=== PATIENT | female | born 1950 | race Caucasian/White ===

== ENCOUNTER → 2016-10-08 | Outpatient (CLI) | payer BC ==
[2016-10-08 11:48] LABS: Basophils % (A) 1 %; CH 28.2; CHCM 32.4; Eosinophils # (A) 0.1 k/uL (0-0.7); Eosinophils % (A) 2 %; HCT 42.1 % (34.0-46.0); HDW 2.83; HGB 13.4 gm/dL (11.4-16.0); Luc # (Auto) 0.13; Luc % (Auto) 2; Lymphocytes # (A) 1.5 k/uL (1.0-4.8); Lymphocytes % (A) 24 %; MCH 27.8 pg (25.0-35.0); MCHC 31.8 g/dL (31.0-37.0); MCV 87.5 fL (80.0-100.0); Monocytes # (A) 0.3 k/uL (0-1.0); Monocytes % (A) 4 %; Neutrophils # (A) 4.1 k/uL (1.3-7.7); Neutrophils % (A) 67 %; RBC 4.81 m/uL (3.80-5.40); RDW 13.3 % (11.5-15.5); WBC 6.1 k/uL (3.8-10.6)
[2016-10-08 12:05] LABS: ALT 33 U/L (9-52); AST 20 U/L (14-36); Alkaline Phosphatase 99 U/L (38-126); Anion Gap 13 mmol/L; Blood Urea Nitrogen 18 mg/dL (7-17); Calcium 9.3 mg/dL (8.4-10.2); Carbon Dioxide 27 mmol/L (22-30); Chloride 104 mmol/L (98-107); Cholesterol 175 mg/dL (<200); Glucose 106 mg/dL (74-99); HDL Cholesterol 58 mg/dL (40-60); Non-African American GFR(MDRD) >60 (>60 ml/min/1.73 sqM); Potassium 4.4 mmol/L (3.5-5.1); Sodium 144 mmol/L (137-145); Total Bilirubin 0.5 mg/dL (0.2-1.3); Triglycerides 80 mg/dL (<150)
== END | disposition home or self-care (01) ==
LOC: LABWHC1 11:20
PROVIDERS: ATTEND Internal Medicine
DX: Z00.00 Encounter for general adult medical examination without abnormal findings (principal); I10 Essential (primary) hypertension; E78.2 Mixed hyperlipidemia
CPT/HCPCS: 36415; 80053; 80061; 85025

== ENCOUNTER → 2017-02-25 | Outpatient (CLI) | payer BC ==
--- NOTE | 2017-03-02 08:26 | MM ---
Reason for exam: screening (asymptomatic). Last mammogram was performed 1 year ago. History: Patient is postmenopausal. Taking progesterone for 4 years 4 months. Physical Findings: A clinical breast exam by your physician is recommended on an annual basis and results should be correlated with mammographic findings. MG Screening Mammo w CAD Bilateral CC and MLO view(s) were taken. Prior study comparison: February 25, 2016, bilateral MG screening mammo w CAD. January 28, 2015, bilateral MG screening mammo w CAD. October 16, 2013, bilateral digital screening mammo w/CAD. There are scattered fibroglandular densities. No significant changes when compared with prior studies. ASSESSMENT: Negative, BI-RAD 1 RECOMMENDATION: Routine screening mammogram of both breasts in 1 year.
== END | disposition home or self-care (01) ==
LOC: RADMAMWWP 08:36
PROVIDERS: ATTEND Internal Medicine
DX: Z12.31 Encounter for screening mammogram for malignant neoplasm of breast (principal)

== ENCOUNTER → 2017-12-09 | Outpatient (CLI) | payer MEDICARE, BC ==
--- NOTE | 2017-12-09 17:04 | MR ---
EXAMINATION TYPE: MR brain wo/w con DATE OF EXAM: 12/09/2017 COMPARISON: NONE HISTORY: MS CONTRAST: Performed utilizing 10 mL intravenous Gadavist gadolinium contrast. TECHNIQUE: Multiplanar, multisequence imaging of the brain is performed on a 3.0 Katie magnet. Demye linating disease protocol with additional Sagittal Flair sequence is performed. Study is performed wi thin 24 hours of arrival to the hospital. FINDINGS: T2 White Matter Lesions Present : Yes Approximate Number of Lesions: Multiple scattered Locations Identified : Yes, numerous bilateral Size of Largest Lesion(s): 1. 0.7 x 1.1 x 1.2 cm. Location: Left frontal lobe perpendicular to the periventricular white matter Sequence 501 Image 20 (axial) and Sequence 601 Image 13 (sagittal). 2. 1.0 x 0.6 x 1.6 cm. Location: Perpendicular to the right lateral ventricles within the centrum s emiovale Sequence 501 Image 23 (axial) and Sequence 601 Image 21 (sagittal). Enhancing Lesion(s) Present: No Change from Prior: Not available Diffusion-weighted imaging is performed. No abnormal hyperintensity is present to suggest an acute i ntracranial infarct or acute ischemic change. Ventricles and sulci are appropriate for the patient age. There are no abnormal extra-axial fluid collections. The ventricular system and cisternal spaces are normal in size and appearance. The brain volume is age appropriate. The craniocervical junction dimitri ears within normal limits. The dural venous sinuses appear patent. No abnormal enhancement is present on post contrast images. . The visualized sinuses are clear. Visu alized orbits are unremarkable. IMPRESSION: 1. Multiple bilateral periventricular white matter changes, some of which are perpendicular to the v entricles. Findings can be suggestive for, although not diagnostic of, multiple sclerosis.
== END | disposition home or self-care (01) ==
LOC: RADMRIMAIN 12:51
PROVIDERS: ATTEND Psychiatry & Neurology Neurology
DX: R90.89 Other abnormal findings on diagnostic imaging of central nervous system (principal); G35 Multiple sclerosis
CPT/HCPCS: 82565; 70553; A9581

== ENCOUNTER → 2018-04-05 | Outpatient (CLI) | payer MEDICARE, BC ==
--- NOTE | 2018-04-07 08:03 | MM ---
Reason for exam: screening (asymptomatic). Last mammogram was performed 1 year and 1 month ago. History: Patient is postmenopausal. Taking progesterone for 4 years 4 months. Physical Findings: A clinical breast exam by your physician is recommended on an annual basis and results should be correlated with mammographic findings. MG Screening Mammo w CAD Bilateral CC and MLO view(s) were taken. Prior study comparison: February 25, 2017, bilateral MG screening mammo w CAD. February 25, 2016, bilateral MG screening mammo w CAD. There are scattered fibroglandular densities. Benign appearing bilateral calcifications. No suspicious abnormality. No significant changes when compared with prior studies. ASSESSMENT: Benign, BI-RAD 2 RECOMMENDATION: Routine screening mammogram of both breasts in 1 year.
== END | disposition home or self-care (01) ==
LOC: RADMAMWWP 07:36
PROVIDERS: ATTEND Internal Medicine
DX: Z12.31 Encounter for screening mammogram for malignant neoplasm of breast (principal)
CPT/HCPCS: 77067

== ENCOUNTER → 2018-05-03 | Outpatient (CLI) | payer MEDICARE, BC ==
--- NOTE | 2018-05-03 19:06 | CT ---
EXAMINATION TYPE: CT chest w con DATE OF EXAM: 05/03/2018 COMPARISON: None HISTORY: chest pain, hiatal hernia CT DLP: 469.7 mGycm, Automated exposure control for dose reduction was used. CONTRAST: Performed injected with 100 mL of Isovue 300. TECHNIQUE: Axial images were obtained at 5 mm thick sections. Reconstructed images are reviewed on [employer] computer in the coronal plane. FINDINGS: Portion of the thyroid visualized is normal. There is a 0.6 cm nodule within the right middle lobe. Series 4 image 27. A 0.3 cm nodules in the per iphery of the right midlung. Series 4 image 23. No enlarged mediastinal or hilar adenopathy is evident. The ascending aorta diameter at the level o f the main pulmonary artery is 3.3 cm. The main pulmonary artery diameter at the bifurcation is 2.[address] sections are obtained through the upper abdomen. There is a large hiatal hernia present. U pper portion of the abdomen within the [id number] is unremarkable. IMPRESSIONS: 1. Large hiatal hernia. 2. Couple of punctate densities within the right midlung. Follow-up chest CT is recommended in 6 [facility] hs.
== END | disposition home or self-care (01) ==
LOC: RADCTMAIN 07:29
PROVIDERS: ATTEND Surgery
DX: K44.9 Diaphragmatic hernia without obstruction or gangrene (principal); R94.2 Abnormal results of pulmonary function studies
CPT/HCPCS: 82565; 84520; 71260; 36415; Q9967

== ENCOUNTER → 2018-06-17 | Outpatient (CLI) | payer MEDICARE, BC ==
--- NOTE | 2018-06-17 10:10 | FL ---
EXAMINATION TYPE: FL barium swallow DATE OF EXAM: 06/17/2018 CLINICAL HISTORY: Paraesophageal hernia per order. TECHNIQUE: A double contrast esophagram is performed utilizing air and barium. A total of 17 second s of fluoroscopic time was utilized during procedure. 44 spot images are saved. COMPARISON: Chest CT May 03, 2018 FINDINGS: The esophagus shows satisfactory motility and emptying into the stomach. There is short seg ment of narrowing felt to be due to twisting of the distal esophagus right before large fixed hiatal hernia. Herniated stomach is abnormal twisting pattern similar to CT. Narrowing as would be expected at level of diaphragmatic hiatus is identified. There is felt just under 50% of stomach that remains below diaphragm. No significant gastroesophageal reflux was seen during real time performance of this study. IMPRESSION: Redemonstration of fairly large size fixed hiatal hernia that has abnormal twisting of th e herniated stomach. Some mild twisting of the distal esophagus is noted. No paraesophageal hernia i s identified.
--- NOTE | 2018-06-17 14:29 | NM ---
EXAMINATION TYPE: NM gastric emptying study DATE OF EXAM: 06/17/2018 COMPARISON: NONE HISTORY: Diaphragmatic hernia Following administration of 2.2 mCi Tc 99m Sulfur Colloid with 1 cup of oatmeal projection images of the abdomen were obtained 10 minutes post ingestion. When possible, both anterior and posterior proje ction images were obtained to allow the calculation of the geometric mean activity. Clearance: 100% % Half-life: 36 minutes Gastroesophagel reflux: None IMPRESSION: Gastric emptying: Complete emptying within 90 minutes Gastroesophageal reflux: Not observed Gastric emptying normal percentage values: 30 minutes: <70% of retention (> 30% emptying) suggests abnormally fast emptying. 60 minutes: <90% retention (>10% emptying) is normal; less than 30% retention (>70% emptying) suggest s abnormally rapid emptying. 90 minutes: <65% retention (> 35% emptying) is normal. 120 minutes: <60% retention (> 40% emptying) is normal. 180 minutes: <30% retention (> 70% emptying) is normal. Gastric emptying T-1/2: Solid: The normal range is 60-105 minutes Liquid only: Normal range is 10-45 minutes. Liquid only-children: At 60 minutes, normal range is 44-58 % . Liquid only-infants: At 60 minutes, normal range is 32-64 %. Additional references: Gastric Emptying Scintigraphy [email or web address]
== END | disposition home or self-care (01) ==
LOC: RADNMMAIN 06:54
PROVIDERS: ATTEND Thoracic Surgery (Cardiothoracic Vascular Surgery)
DX: K44.9 Diaphragmatic hernia without obstruction or gangrene (principal)
CPT/HCPCS: 74220; 78264; A9541

== ENCOUNTER → 2019-01-13 | Outpatient (CLI) | payer MEDICARE, BC ==
--- NOTE | 2019-01-13 10:14 | FL ---
EXAMINATION TYPE: FL UGI w esophagus w KUB DATE OF EXAM: 01/13/2019 COMPARISON: NONE HISTORY: Epigastric pain after eating TECHNIQUE: A single contrast UGI study is performed. FINDINGS: Registered Radiation Therapist image of the abdomen shows no gross abnormality. The stomach is primarily intrathoracic in location. Large fixed hiatal hernia and paraesophageal hiat al hernia noted. Moderate gastroesophageal reflux without esophagitis. Duodenal bulb and sweep have a normal appearance. IMPRESSION: Large fixed hiatal hernia with paraesophageal component.
== END | disposition home or self-care (01) ==
LOC: RADFLWHC 09:00
PROVIDERS: ATTEND Thoracic Surgery (Cardiothoracic Vascular Surgery)
DX: K44.9 Diaphragmatic hernia without obstruction or gangrene (principal)
CPT/HCPCS: 74241

== ENCOUNTER → 2019-04-12 | Outpatient (CLI) | payer MEDICARE, BC ==
--- NOTE | 2019-04-13 13:08 | MM ---
Reason for exam: screening (asymptomatic). Last mammogram was performed 1 year ago. History: Patient is postmenopausal. Taking progesterone for 4 years 4 months. Physical Findings: A clinical breast exam by your physician is recommended on an annual basis and results should be correlated with mammographic findings. MG 3D Screening Mammo W/Cad Bilateral CC and MLO view(s) were taken. Prior study comparison: April 05, 2018, bilateral MG screening mammo w CAD. February 25, 2017, bilateral MG screening mammo w CAD. There are scattered fibroglandular densities. There is a 1.2cm group of left upper outer quadrant middle depth calcifications for which additional views will be performed. Benign appearing right calcifications. ASSESSMENT: Incomplete: need additional imaging evaluation, BI-RAD 0 RECOMMENDATION: Special view mammogram of the left breast. [facility] will attempt to contact patient to return for supplemental views.
== END | disposition home or self-care (01) ==
LOC: RADMAMWWP 06:57
PROVIDERS: ATTEND Internal Medicine
DX: Z12.31 Encounter for screening mammogram for malignant neoplasm of breast (principal)
CPT/HCPCS: 77063; 77067

== ENCOUNTER → 2019-04-24 | Outpatient (CLI) | payer MEDICARE, BC | END | disposition home or self-care (01) | LOC: RADMAMWWP 08:52 | PROVIDERS: ATTEND Internal Medicine | DX: Z53.9 Procedure and treatment not carried out, unspecified reason (principal) ==

== ENCOUNTER → 2019-05-22 | Outpatient (CLI) | payer MEDICARE, BC ==
--- NOTE | 2019-05-22 11:02 | MM ---
Reason for exam: additional evaluation requested from abnormal screening. Last mammogram was performed 1 month ago. History: Patient is postmenopausal. Taking progesterone for 4 years 4 months. Physical Findings: Nurse did not find any significant physical abnormalities on exam. MG 3D Work Up W/Cad LT CC with magnification, LM with magnification, and LM view(s) were taken of the left breast. Prior study comparison: April 12, 2019, bilateral MG 3d screening mammo w/cad. April 05, 2018, bilateral MG screening mammo w CAD. There are scattered fibroglandular densities. Upper outer quadrant course microcalcifications noted to be new from 2017. Not clearly vascular on magnification views. Biopsy recommended. These results were verbally communicated with the patient and result sheet given to the patient on 05/22/19. ASSESSMENT: Suspicious, BI-RAD 4 RECOMMENDATION: Surgical consultation and stereotactic core biopsy of the left breast. Called Dr. Cullen with mammographic findings and has scheduled an appointment for the patient for 06/22/19 at 9:[address] Barba. Biopsy scheduled for 06/23/19 at 8:00. PRELIMINARY REPORT CALLED AND FAXED TO DR. BARBA ON 05/22/19.
== END | disposition home or self-care (01) ==
LOC: RADMAMWWP 08:54
PROVIDERS: ATTEND Internal Medicine
DX: R92.8 Other abnormal and inconclusive findings on diagnostic imaging of breast (principal)
CPT/HCPCS: 77065; G0279; 77061

== ENCOUNTER → 2019-06-22 | Outpatient (CLI) | payer MEDICARE, BC ==
[2019-06-22 14:33] VITALS: BP 143/85; PULSE 72; RESP 18; TEMP 97.7; BMI 32.5
--- NOTE | 2019-06-22 14:55 | P.GSHP ---
History of Present Illness H&P Date: 06/22/19 Chief Complaint: abnormal mammogram Catracho is a 68-year-old white female 1 a routine screening mammogram in April 2019 was noted to have an area of concern in the left breast. Additional views of the left breast were recommended which [place] [id number]. This revealed in the upper outer quadrant some coarse microcalcifications noted to be new from 2017. Stereotactic core biopsy was recommended. The patient does not feel anything of concern in her breast. The patient denies any pain in her breast. No nipple discharge or skin changes of concern. Family History: brother: prostate maternal grndfather: oral cancer Hormonal History: menarche: 14 , breast fed: yes, age at first : 24 menopause: 53 BCP: < 1 year hormones: 3 years Surgical history: 1. Hysterectomy 2. knee repair 3. hiatal hernia 4. bladder suspension done 2x Medical History: dx. 1991, stable Social History: smoke: none alcohol: none drugs: none - Constitutional Constitutional: Denies chills, Denies fever - EENT Eyes: denies blurred vision, denies pain Ears: deny: decreased hearing, tinnitus Ears, nose, mouth and throat: Denies headache, Denies sore throat - Breasts Breasts: bilateral: as per HPI - Cardiovascular Cardiovascular: Denies chest pain, Denies shortness of breath - Respiratory Respiratory: Denies cough, Denies 7 - Gastrointestinal Gastrointestinal: Reports constipation, Reports diarrhea, Denies abdominal pain, Denies nausea, Denies vomiting - Genitourinary (Female) Comment: bladder suspension - Menstruation Comment: took both ovaries Menstruation: Reports post hysterectomy - Musculoskeletal Comment: arthritis - Integumentary Integumentary: Denies pruritus, Denies rash - Neurological Comment: MS Neurological: Reports numbness, Reports weakness - Psychiatric Psychiatric: Denies anxiety, Denies depression - Endocrine Endocrine: Denies fatigue, Denies weight change - Hematologic/Lymphatic Comment: none - Allergic/Immunologic Allergic/Immunologic: Reports as per HPI Past Medical History Past Medical History: Neurologic Disorder Additional Past Medical History / Comment(s): Abd pain. Sinus problems. Multiple Sclerosis.Occasional left leg edema. Hiatal hernia History of Any Multi-Drug Resistant Organisms: None Reported Past Surgical History: Bladder Surgery, Hysterectomy, Orthopedic Surgery Additional Past Surgical History / Comment(s): Bladder susp, D & C. Left knee scope. Past Anesthesia/Blood Transfusion Reactions: Previous Problems w/ Anesthesia, Motion Sickness, Postoperative Nausea & Vomiting (PONV) Additional Past Anesthesia/Blood Transfusion Reaction / Comment(s): 1 episode of diff waking up post op. Past Psychological History: No Psychological Hx Reported Smoking Status: Never smoker Past Alcohol Use History: Rare Past Drug Use History: None Reported - Past Family History Brother(s) Family Medical History: Cancer Additional Family Medical History / Comment(s): Prostate CA. Medications and Allergies Home Medications Medication Instructions Recorded Confirmed Type Fluticasone Propionate 2 spray EA NOSTRIL DAILY PRN 09/11/16 06/22/19 History Furosemide [Lasix] 20 mg PO BID PRN 09/11/16 06/22/19 History Interferon Beta-1A [Avonex Pen] 1 applic IM MO 09/11/16 06/22/19 History Naproxen Sodium [Aleve] 1 tab PO DIRECTED PRN 09/11/16 06/22/19 History Potassium Chloride [Klor-Con 10] 10 meq PO BID 09/11/16 06/22/19 History Cholecalciferol (Vitamin D3) 2,000 unit PO DAILY 06/08/19 06/22/19 History [Vitamin D3] Omeprazole [PriLOSEC] 40 mg PO DAILY 06/22/19 06/22/19 History Allergies Allergy/AdvReac Type Severity Reaction Status Date / Time codeine Allergy Unknown Verified 06/22/19 14:14 adhesive AdvReac Itching, Verified 06/22/19 14:14 rash Surgical - Exam Vital Signs Temp Pulse Resp BP Pulse Ox 97.7 F 72 18 143/85 92 L 06/22/19 14:31 06/22/19 14:31 06/22/19 14:31 06/22/19 14:31 06/22/19 14:31 BMI 32.6 - General obese - Eyes normal ocular movement - ENT no hearing loss, no congestion - Neck no masses, trachea midline - Respiratory normal respiratory effort, clear to auscultation - Cardiovascular Rhythm: regular Heart Sounds: normal: S1, S2 - Abdomen Abdomen: soft, non tender, no guarding, no rigid, no rebound - Integumentary normal turgor - Neurologic no disoriented, no combative - Musculoskeletal difficulty with gait - Psychiatric Breast examination: Right breast: Multiple positional exam fibrocystic changes, no dominant masses or nodules of concern, grade 3 ptosis Right axilla: No adenopathy of concern left breast: Multiple positional exam fibrocystic changes, no dominant masses or nodules of concern, grade 3 ptosis Left axilla: No adenopathy of concern Results Mammogram results reviewed Assessment and Plan Assessment: Impression/plan: 1. Radiographic abnormality left breast 2. Family history of cancer 3. Fibrocystic breast changes 4. Hiatal hernia 5. Multiple sclerosis Plan: 1. Stereotactic core biopsy left breast 2. Medical management of medical conditions Risk and benefits of the stereotactic core biopsy procedure were discussed with the patient. She understands and wishes to proceed. Cc: Dr. Cullen
== END ==
LOC: WWCWWP 13:42
PROVIDERS: ATTEND Surgery
DX: Z53.9 Procedure and treatment not carried out, unspecified reason (principal)

== ENCOUNTER → 2019-06-23 | Day surgery (SDC) | payer MEDICARE, BC ==
[2019-06-23 07:18] VITALS: RESP 12; TEMP 98.1
[2019-06-23 08:56] VITALS: BP 118/75; PULSE 70
--- NOTE | 2019-06-23 17:18 | P.PCN ---
Date of Procedure: 06/23/19 Preoperative Diagnosis: Mammographic abnormality left breast Postoperative Diagnosis: Same Procedure(s) Performed: Stereotactic core biopsy left breast Surgeon: Lee Ann Barba Estimated Blood Loss (ml): 1 Pathology: other (Breast tissue with microcalcifications) Condition: stable Disposition: same day Indications for Procedure: Microcalcifications of concern upper outer quadrant left breast Operative Findings: Core biopsy radiograph of specimen shows microcalcifications Description of Procedure: The patient is a 68-year-old white female who had a mammogram done which showed microcalcifications of concern in the upper outer quadrant of the left breast. She was recommended to undergo stereotactic core biopsy. Risks and benefits of the procedure were discussed with the patient and she wished to proceed. Patient was taken to the stereotactic core room and positioned on the Lo Rad table. A dumb waiter operator film was obtained. The area of concern was identified. This area was targeted. The breast was prepped using Betadine. 1% lidocaine was u sed to anesthetize the area of the skin. A Cc from above approach was utilized. The needle was driven to the correct coordinates and prefire films were obtained. The needle was then fired and post fire films were obtained. The lesion did not appear to be in the correct location with respect to the needle. The needle was withdrawn and the lesion was re-targeted. Upon re-targeting celestino lesion the breast was again anesthetized using 1% lidocaine. Again a 9-gauge vacuum assisted core rotating biopsy needle was driven to the correct coordinates. Prefire and post fire films were obtained and this time the needle was in the correct location. The biopsies were obtained. Approximately 8 specimens were obtained. Radiograph of the specimens revealed the microcalcifications of concern in the specimen. A top hat Marking clip was left in place. The patient tolerated the procedure in stable condition. The specimen was sent to pathology. The patient will follow-up with Dr. Velasco next week.
--- NOTE | 2019-06-23 18:46 | MM ---
EXAMINATION TYPE: MG stereo VAD BX LT DATE OF EXAM: 06/23/2019 COMPARISON: 05/22/2019 CLINICAL HISTORY: Abnormal mammogram, calcifications TECHNIQUE: Stereotactic guided core biopsy of left breast. FINDINGS: The procedure was performed by the surgeon. Targeting was provided by radiology. The shortness pathway for biopsy was chosen. Shortness pathway was superior approach. Vacuum-assisted device was utilized to obtain core samples. First sampling did not have calcifications and the calcifications were retargeted by radiology. Subsequent sample demonstrates calcifications within the sample. Procedure mammogram was obtained. Clip is in the expected region of the calcifications IMPRESSION: 1. Successful stereotactic core biopsy left breast calcifications. Recommendations: 1. Recommendations are pending pathology results. Pathology Results: Benign LEFT BREAST, STEREOTACTIC CORE BIOPSY: Fibroadenoma with focal calcification, fibrocystic changes. Recommendation Follow up mammogram of the left breast in 6 months. SHANNON
== END ==
LOC: RADMAMWWP 06:51
PROVIDERS: ATTEND Surgery
DX: D24.2 Benign neoplasm of left breast (principal); N60.12 Diffuse cystic mastopathy of left breast; R92.0 Mammographic microcalcification found on diagnostic imaging of breast
CPT/HCPCS: 88305; 19081; A4648; J2001

== ENCOUNTER → 2019-06-29 | Outpatient (CLI) | payer MEDICARE, BC ==
[2019-06-29 13:50] VITALS: BP 129/82; PULSE 64; RESP 18; TEMP 97.5; BMI 32.5
--- NOTE | 2019-06-29 14:04 | P.PN ---
Subjective Progress Note Date: 06/29/19 Principal diagnosis: stero-biopsy results Catracho is a 68-year-old white female 1 a routine screening mammogram in April 2019 was noted to have an area of concern in the left breast. Additional views of the left breast were recommended which was performed on [id number]. This reve aled in the upper outer quadrant some coarse microcalcifications noted to be new from 2017. Stereotactic core biopsy was recommended. This was preformed on 06-23-19. Pathology was a benign fibroadenoma and fibrocystic changes. The patient has no complaints related to the procedure. Family History: brother: prostate maternal grndfather: oral cancer Hormonal History: menarche: 14 , breast fed: yes, age at first : 24 menopause: 53 BCP: < 1 year hormones: 3 years Surgical history: 1. Hysterectomy 2. knee repair 3. hiatal hernia 4. bladder suspension done 2x Medical History: dx. 1991, stable Social History: smoke: none alcohol: none drugs: none - Constitutional Constitutional: Denies chills, Denies fever - EENT Eyes: denies blurred vision, denies pain Ears: deny: decreased hearing, tinnitus Ears, nose, mouth and throat: Denies headache, Denies sore throat - Breasts Breasts: bilateral: as per HPI - Cardiovascular Cardiovascular: Denies chest pain, Denies shortness of breath - Respiratory Respiratory: Denies cough, Denies 7 - Gastrointestinal Gastrointestinal: Reports constipation, Reports diarrhea, Denies abdominal pain, Denies nausea, Denies vomiting - Genitourinary (Female) Comment: bladder suspension - Menstruation Comment: took both ovaries Menstruation: Reports post hysterectomy - Musculoskeletal Comment: arthritis - Integumentary Integumentary: Denies pruritus, Denies rash - Neurological Comment: MS Neurological: Reports numbness, Reports weakness - Psychiatric Psychiatric: Denies anxiety, Denies depression - Endocrine Endocrine: Denies fatigue, Denies weight change - Hematologic/Lymphatic Comment: none - Allergic/Immunologic Allergic/Immunologic: Reports as per HPI Objective - Vital Signs Vital signs: Vital Signs Temp 97.5 F L 06/29/19 13:46 Pulse 64 06/29/19 13:46 Resp 18 06/29/19 13:46 BP 129/82 06/29/19 13:46 Pulse Ox 99 06/29/19 13:46 Intake & Output 06/28/19 06/29/19 06/29/19 18:59 06:59 18:59 Weight 86.183 kg - Exam BMI 32.6 - Constitutional General appearance: Present: obese - EENT Eyes: Present: EOMI ENT: Present: hearing grossly normal - Neck Neck: Present: normal ROM - Respiratory Respiratory: bilateral: CTA - Cardiovascular Rhythm: regular Heart sounds: normal: S1, S2 - Integumentary Integumentary: Present: normal turgor - Musculoskeletal Musculoskeletal: Present: gait normal - Psychiatric Psychiatric: Present: A&O x's 3, appropriate affect, intact judgment & insight - Additional findings Additional findings: Left breast: Stereotactic core biopsy site is clean and dry Evidence of any infection. A small hematoma at the site Assessment and Plan Assessment: Impression: 1. Fibrocystic breast changes 2. Ultrasound core biopsy left breast benign fibroadenoma 3. Family history of cancer 4. Multiple sclerosis I have discussed with the patient and her the results of the stereotactic core biopsy. This was a benign fibroadenoma. The understand this and they understand that she should have a repeat left breast mammogram in 6 months time. If she has any questions or concerns or be happy to see her sooner Plan: 1. Left breast mammogram 6 months time with physician exam 2. Medical management of medical conditions Cc: Dr. Cullen
== END | disposition home or self-care (01) ==
LOC: WWCWWP 13:32
PROVIDERS: ATTEND Surgery
DX: Z53.9 Procedure and treatment not carried out, unspecified reason (principal)

== ENCOUNTER → 2020-03-22 | Outpatient (CLI) | payer MEDICARE, BC ==
--- NOTE | 2020-03-25 08:40 | MM ---
Reason for exam: follow-up at short interval from prior study. Last mammogram was performed 10 months ago. History: Patient is postmenopausal. Benign MG stereo VAD BX LT of the left breast, June 23, 2019. Taking progesterone for 4 years 4 months. Physical Findings: Nurse did not find any significant physical abnormalities on exam. MG 3D Diag Mammo W/Cad KAREN Bilateral CC and MLO view(s) were taken. Prior study comparison: April 12, 2019, bilateral MG 3d screening mammo w/cad. There are scattered fibroglandular densities. Previous mammotome biopsy in the right breast. No significant new findings when compared with previous films. These results were verbally communicated with the patient and result sheet given to the patient on 03/22/20. ASSESSMENT: Benign, BI-RAD 2 RECOMMENDATION: Routine screening mammogram of both breasts in 1 year.
== END | disposition home or self-care (01) ==
LOC: RADMAMWWP 12:52
PROVIDERS: ATTEND Surgery
DX: R92.8 Other abnormal and inconclusive findings on diagnostic imaging of breast (principal)
CPT/HCPCS: 77066; G0279; 77062

== ENCOUNTER → 2020-04-30 | Outpatient (CLI) | payer MEDICARE, BC ==
--- NOTE | 2020-04-30 09:53 | NM ---
EXAMINATION TYPE: NM hepatobiliary w EF DATE OF EXAM: 04/30/2020 COMPARISON: NONE HISTORY: Pain TECHNIQUE: After the intravenous administration of 4.11 mCi Tc 99m Mebrofenin hepatobiliary scintigra phy is performed. Immediate images post injection. FINDINGS: There is satisfactory initial accumulation of tracer by the liver. The gallbladder is visualized wit hin 15 minutes. The small bowel activity is noted within 60 minutes. At one hour 8 ounces of oral e nsure plus is given to mimic CCK and gallbladder ejection fraction is calculated at 66 %, in the norm al range. Therefore there is no scintigraphic evidence of cystic or common bile duct obstruction to suggest acute cholecystitis or gallbladder dyskinesia. IMPRESSION: Exam is within normal limits.
== END | disposition home or self-care (01) ==
LOC: RADNMMAIN 06:56
PROVIDERS: ATTEND Internal Medicine
DX: R10.84 Generalized abdominal pain (principal)
CPT/HCPCS: 78226; A9537

== ENCOUNTER → 2021-06-03 | Outpatient (CLI) | payer MEDICARE, BC ==
--- NOTE | 2021-06-04 13:55 | MM ---
Reason for exam: screening (asymptomatic). Last mammogram was performed 1 year and 2 months ago. History: Patient is postmenopausal. Benign MG stereo VAD BX LT of the left breast, June 23, 2019. Took progesterone for 4 years 4 months. Physical Findings: A clinical breast exam by your physician is recommended on an annual basis and results should be correlated with mammographic findings. MG 3D Screening Mammo W/Cad Bilateral CC and MLO view(s) were taken. Prior study comparison: March 22, 2020, bilateral MG 3d diag mammo w/cad [facility]. May 22, 2019, left breast MG 3d work up w/cad LT. There are scattered fibroglandular densities. Stable benign calcifications. There is no discrete abnormality. No significant changes when compared with prior studies. ASSESSMENT: Benign, BI-RAD 2 RECOMMENDATION: Routine screening mammogram of both breasts in 1 year.
== END | disposition home or self-care (01) ==
LOC: RADMAMWWP 10:45
PROVIDERS: ATTEND Internal Medicine
DX: Z12.31 Encounter for screening mammogram for malignant neoplasm of breast (principal); Z78.0 Asymptomatic menopausal state
CPT/HCPCS: 77063; 77067

== ENCOUNTER → 2021-06-13 | Outpatient (CLI) | payer MEDICARE, BC ==
--- NOTE | 2021-06-13 10:54 | BD ---
EXAMINATION TYPE: Axial Bone Density DATE OF EXAM: 06/13/2021 COMPARISON: 09.12.2012 CLINICAL HISTORY: 70 YR OLD FEMALE......ICD-10 CODE: M89.9 DISORDER OF BD, M81.0 KNOWN OSTEOPOROS IS Height: 61.5 Weight: 218 FRAX RISK QUESTIONS: Family History (Parent hip fracture): YES RISK FACTORS HISTORY OF: Family History of Osteoporosis: YES, MOTHER, GR MO, AND MAT AUNT Postmenopausal woman: YES, AT AGE 54, FULL HYST Take estrogen and/or progesterone medications: YES, FOR ABOUT 5 YRS , NONE NOW Lost more than 2 inches in height since high school: YES Hyperparathyroidism: NO Adrenal Insufficiency: NO MEDICATIONS: Additional Medications: REFLUX MEDS, VIT D AND CALCIUM Additional History: REFLUX, ARTHRITIS EXAM MEASUREMENTS: Bone mineral densitometry was performed using the [employer] System. Bone mineral density as measured about the Lumbar spine is: ----- L1-L4(G/cm2): 1.032 T Score Values are as follows: ----- L1: -1.9 ----- L2: -2.1 ----- L3: -0.7 ----- L4: -0.9 ----- L1-L4: -1.2 Bone mineral density has: Decreased -20.4% since study of: 09.12.2012 Bone mineral density about the R hip (g/cm2): 0.785 Bone mineral density about the L hip (g/cm2): 0.812 T Score values are as follows: -----R Neck: -1.7 -----L Neck: -1.7 -----R Total: -1.8 -----L Total: -1.6 Bone mineral density has: Decreased -19.2% since study of: 09.12.2012 FRAX%s: THERE IS A 15.3% CHANCE FOR A MAJOR OSTEOPOROTIC FX AND A 2.2% FOR HIP.....PROBABILITY FO R FX IN 10 YRS TIME IMPRESSION: Osteopenia NOTE: T-SCORE=SD OF THE YOUNG ADULT MEAN.
== END | disposition home or self-care (01) ==
LOC: RADBDWWP 09:10
PROVIDERS: ATTEND Internal Medicine
DX: M85.89 Other specified disorders of bone density and structure, multiple sites (principal)
CPT/HCPCS: 77080

== ENCOUNTER → 2022-06-09 | Outpatient (CLI) | payer MEDICARE, BC ==
--- NOTE | 2022-06-09 10:30 | XR ---
EXAMINATION TYPE: XR shoulder complete LT DATE OF EXAM: 06/09/2022 CLINICAL HISTORY: Spasm and pain. TECHNIQUE: Three views of the left shoulder are obtained. COMPARISON: None. FINDINGS: There is no acute fracture/dislocation evident in the left shoulder. Moderate to severe na rrowing at acromioclavicular joint with mild to moderate spurring. Glenohumeral joint is maintained. The visualized ribs are intact . IMPRESSION: As above.
== END | disposition home or self-care (01) ==
LOC: RADXRMAIN 09:42
PROVIDERS: ATTEND Internal Medicine
DX: M62.838 Other muscle spasm (principal); M25.812 Other specified joint disorders, left shoulder; M77.8 Other enthesopathies, not elsewhere classified

== ENCOUNTER → 2022-08-14 | Outpatient (CLI) | payer MEDICARE, BC ==
--- NOTE | 2022-08-17 07:19 | MM ---
Reason for Exam: Screening (asymptomatic). Last mammogram was performed 1 year(s) and 3 month(s) ago. Patient History: Menarche at age 14. First Full-Term at age 23. Right ovary removed at age 56. Hysterectomy at age 56. Postmenopausal. Progesterone for 4 years, 4 months. 06/23/2019, Benign Core Biopsy on the left side. Risk Values: Yamilet 5 year model risk: 1.8%. NCI Lifetime model risk: 5.6%. Prior Study Comparison: 05/22/2019 Left Diagnostic Mammogram, [facility]. 03/22/2020 Bilateral Diagnostic Mammogram, [facility]. 06/03/2021 Bilateral Screening Mammogram, [facility]. Tissue Density: There are scattered fibroglandular densities. Findings: Analyzed By CAD. A few scattered benign-appearing round calcifications are redemonstrated bilaterally. Mammotome biopsy clip in the left breast is again seen. Benign-appearing bilateral axillary lymph nodes are redemonstrated. There is no suspicious new group of microcalcifications or new suspicious mass in either breast. Overall Assessment: Benign, BI-RAD 2 Management: Screening Mammogram of both breasts in 1 year. A clinical breast exam by your physician is recommended on an annual basis and results should be correlated with mammographic findings. Electronically signed and approved by: Rick Rebolledo M.D.
== END | disposition home or self-care (01) ==
LOC: RADMAMWWP 07:17
PROVIDERS: ATTEND Internal Medicine
DX: Z12.31 Encounter for screening mammogram for malignant neoplasm of breast (principal); Z78.0 Asymptomatic menopausal state; Z90.721 Acquired absence of ovaries, unilateral
CPT/HCPCS: 77063; 77067

== ENCOUNTER → 2023-02-17 | Outpatient (CLI) | payer MEDICARE, BC ==
[2023-02-17 15:10] LABS: Basophils # (A) 0.07 X 10*3/uL (0.00-0.10); Basophils % (A) 1.1 %; Eosinophils # (A) 0.13 X 10*3/uL (0.04-0.35); Eosinophils % (A) 2.1 %; HCT 41.2 % (37.2-46.3); HGB 13.6 g/dL (12.0-15.0); Immature Grans, Automated 0.2 %; Lymphocytes # (A) 2.15 X 10*3/uL (0.90-5.00); Lymphocytes % (A) 34.5 %; MCV 87.8 fL (80.0-97.0); Mean Platelet Volume 10.4 fL (9.5-12.2); Monocytes # (A) 0.52 X 10*3/uL (0.20-1.00); Monocytes % (A) 8.3 %; NRBC Per 100 WBC 0 /100 WBCS (0.0-0.0); Neutrophils # (A) 3.35 X 10*3/uL (1.80-7.70); Neutrophils % (A) 53.8 %; Platelet Count 235 X 10*3/uL (140-440); RBC 4.69 X 10*6/uL (4.10-5.20); RDW 13.4 % (11.5-14.5); WBC 6.23 X 10*3/uL (4.50-10.00)
[2023-02-17 16:20] LABS: % Iron Saturation 20.31 (12.00-45.00); ALT 21 U/L (8-44); AST 18 U/L (13-35); African American GFR (CKD) 71.5 (60.0-200.0); Albumin 4.1 g/dL (3.8-4.9); Albumin/Globulin Ratio 1.53 (1.60-3.17); Alkaline Phosphatase 117 U/L (41-126); BUN/Creat Ratio 13.98 Ratio (12.00-20.00); Blood Urea Nitrogen 13.1 mg/dL (9.0-27.0); Calcium 9.6 mg/dL (8.7-10.3); Carbon Dioxide 22.8 mmol/L (20.0-27.5); Chloride 106 mmol/L (96-109); Globulin 2.7 g/dL (1.6-3.3); Glucose 101 mg/dL (70-110); Iron 73 ug/dL (50-170); Magnesium 2.3 mg/dL (1.5-2.4); Non-African American GFR(CKD) 61.7 (60.0-200.0); Potassium 4.5 mmol/L (3.5-5.5); Sodium 141 mmol/L (135-145); Total Iron Binding Capacity 357 ug/dL (228-460); Total Protein 6.8 g/dL (6.2-8.2)
[2023-02-18 10:56] LABS: Chol/HDL Ratio 3.84 Ratio; LDL Cholesterol,Calculated 140.2 mg/dL (0.0-131.0); VLDL Calculation 17.44 mg/dL (5.00-40.00)
== END | disposition home or self-care (01) ==
LOC: LABWHC1 11:17
PROVIDERS: ATTEND Internal Medicine
DX: Z11.59 Encounter for screening for other viral diseases (principal); M85.80 Other specified disorders of bone density and structure, unspecified site; K21.9 Gastro-esophageal reflux disease without esophagitis
CPT/HCPCS: 36415; 80053; 80061; 82306; 82607; 82746; 83540; 83550; 83735; 84443; 85025; 86803

== ENCOUNTER → 2023-09-14 | Outpatient (CLI) | payer MEDICARE, BC ==
--- NOTE | 2023-09-14 16:22 | BD ---
EXAMINATION TYPE: Axial Bone Density DATE OF EXAM: 09/14/2023 CLINICAL HISTORY: 72 years old Female. ICD-10 CODE: M85.80 Osteopenia Height: 61in Weight: 207lb FRAX RISK QUESTIONS: Family History (Parent hip fracture): yes Secondary Osteoporosis: RISK FACTORS HISTORY OF: Family History of Osteoporosis: yes Active: yes Postmenopausal woman: yes Take estrogen and/or progesterone medications: yes, none current How long: about 5 years Lost more than 2 inches in height since high school: yes MEDICATIONS: Additional Medications: calcium with vitamin d Additional History: EXAM MEASUREMENTS: Bone mineral densitometry was performed using the [employer] System. Bone mineral density as measured about the Lumbar spine is: ----- L1-L4(G/cm2): 1.038 T Score Values are as follows: ----- L1: -1.4 ----- L2: -1.4 ----- L3: -1.0 ----- L4: -1.1 ----- L1-L4: -1.2 Z Score Values are as follows: ----- L1: -0.7 ----- L2: -0.6 ----- L3: -0.3 ----- L4: -0.4 ----- L1-L4: -0.5 Bone mineral density has: Increased 0.6% since study of: 06-13-2021 Bone mineral density about the R hip (g/cm2): 0.740 Bone mineral density about the L hip (g/cm2): 0.781 T Score values are as follows: -----R Neck: -1.9 -----L Neck: -1.9 -----R Total: -2.1 -----L Total: -1.8 Z Score values are as follows: -----R Neck: -0.8 -----L Neck: -0.8 -----R Total: -1.3 -----L Total: -1.0 Bone mineral density has: Decreased -4.8% since study of: 06-13-2021 FRAX%s: The graph provided illustrates a 16.4% chance for a major osteoporotic fx and a 4.3% chance f or the hips probability for fx in 10 years time. IMPRESSION: Osteopenia (T Score between -2.5 and -1). There is slightly increased risk of fracture and the patient may be considered for treatment. Re-Screen 2-5 years. NOTE: T-SCORE=SD OF THE YOUNG ADULT MEAN.
--- NOTE | 2023-09-15 12:04 | MM ---
Reason for Exam: Screening (asymptomatic). Last mammogram was performed 1 year(s) and 1 month(s) ago. Patient History: Menarche at age 14. First Full-Term at age 23. Right ovary removed at age 56. Hysterectomy at age 56. Postmenopausal. Progesterone for 4 years, 4 months. 06/23/2019, Benign Core Biopsy on the left side. Risk Values: Yamilet 5 year model risk: 1.8%. NCI Lifetime model risk: 5.3%. Prior Study Comparison: 03/22/2020 Bilateral Diagnostic Mammogram, [facility]. 06/03/2021 Bilateral Screening Mammogram, [facility]. 08/14/2022 Bilateral MG 3D screening mammo w/cad, [facility]. Tissue Density: There are scattered fibroglandular densities. Findings: Analyzed By CAD. There is no suspicious group of microcalcifications or new suspicious mass in either breast. Overall Assessment: Benign, BI-RAD 2 Management: Screening Mammogram of both breasts in 1 year. . Patient should continue monthly self-breast exams. A clinical breast exam by your physician is recommended on an annual basis. This exam should not preclude additional follow-up of suspicious palpable abnormalities. Note on Yamilet scores and lifetime risk: 1. A Yamilet score greater than 3% is considered moderate risk. If this is the case, consider specialist referral to assess eligibility for a risk reducing agent. 2. If overall lifetime risk for the development of breast cancer is 20% or higher, the patient may qualify for future screening with alternating mammogram and breast MRI. Electronically signed and approved by: David Humphries M.D. Radiologis
== END | disposition home or self-care (01) ==
LOC: RADMAMWWP 10:15
PROVIDERS: ATTEND Internal Medicine
DX: Z12.31 Encounter for screening mammogram for malignant neoplasm of breast (principal); M85.89 Other specified disorders of bone density and structure, multiple sites; Z78.0 Asymptomatic menopausal state
CPT/HCPCS: 77063; 77067; 77080

== ENCOUNTER → 2024-09-15 | Outpatient (CLI) | payer MEDICARE, BC ==
--- NOTE | 2024-09-17 03:37 | MM ---
Reason for Exam: Screening (asymptomatic). Last screening mammogram was performed 12 month(s) ago. Patient History: Menarche at age 14. First Full-Term at age 23. Right ovary removed at age 56. Hysterectomy at age 56. Postmenopausal. Progesterone for 4 years, 4 months. 06/23/2019, Benign Core Biopsy on the left side. Risk Values: Yamilet 5 year model risk: 1.8%. NCI Lifetime model risk: 5.1%. Prior Study Comparison: 06/03/2021 Bilateral Screening Mammogram, [facility]. 08/14/2022 Bilateral MG 3D screening mammo w/cad, [facility]. 09/14/2023 Bilateral MG 3D screening mammo w/cad, [facility]. Tissue Density: There are scattered areas of fibroglandular density. Findings: Analyzed By CAD. The pattern is symmetrical. Scattered benign-appearing calcifications. Core marker within the left breast. No significant interval change. No suspicious groups of microcalcifications, spiculated or lobular masses, architectural distortion or other secondary signs of malignancy are mammographically apparent. Overall Assessment: Benign, BI-RAD 2 Management: Screening Mammogram of both breasts in 1 year. A negative mammogram report should not preclude additional follow up of suspicious palpable abnormalities. Patient should continue monthly self breast exam. A clinical breast exam by your physician is recommended on an annual basis and results should be correlated with mammographic findings. Note on Yamilet scores and lifetime risk: 1. A Yamilet score greater than 3% is considered moderate risk. If this is the case, consider specialist referral to assess eligibility for a risk reducing agent. 2. If overall lifetime risk for the development of breast cancer is 20% or higher, the patient may qualify for future screening with alternating mammogram and breast MRI. [facility], , 09/17/2024 3:33 AM. Electronically signed and approved by: Levon Dean D.O. Radiologis
== END | disposition home or self-care (01) ==
LOC: RADMAMWWP 07:17
PROVIDERS: ATTEND Internal Medicine
DX: Z12.31 Encounter for screening mammogram for malignant neoplasm of breast (principal); Z78.0 Asymptomatic menopausal state; Z90.721 Acquired absence of ovaries, unilateral; R92.323 Mammographic fibroglandular density, bilateral breasts
CPT/HCPCS: 77063; 77067

== ENCOUNTER 2024-09-27 12:09 | Emergency (ER) | payer MEDICARE, BC ==
[2024-09-27 12:15] VITALS: RESP 20
[2024-09-27] MEDS: DIPH,PERTUS(ACELL)TETVAC-LF 0.5 ML VIAL IM ONE (12:37)
--- NOTE | 2024-09-27 12:52 | ED ---
Wound/Laceration HPI - General Chief Complaint: Wound/Laceration Stated Complaint: R hand laceration Time Seen by Provider: 09/27/24 12:21 Source: patient, RN notes reviewed Mode of arrival: ambulatory Limitations: no limitations - History of Present Illness Initial Comments: This is a 73-year-old female presenting with right thumb laceration x 1 hour a go. Patient states she was working with a mandolin at home, slicing meats when she accidentally sliced her right thumb. Endorses significant bleeding with minimal pain, denies any other injury. Denies use of blood thinners. Patient states she is not up-to-date with tetanus. States she has strong antibiotic ointment at home already. Onset/Timin -: hour(s) - Related Data Home Medications Medication Instructions Recorded Confirmed Fluticasone Propionate 2 spray EA NOSTRIL DAILY PRN 09/11/16 08/05/22 Furosemide [Lasix] 20 mg PO BID 09/11/16 08/05/22 Potassium Chloride [Klor-Con 10] 10 meq PO BID 09/11/16 08/05/22 Omeprazole [PriLOSEC] 40 mg PO QAM PRN 06/22/19 08/05/22 Multivitamins, Thera [Multivitamin 1 tab PO DAILY 08/03/22 08/03/22 (formulary)] Allergies Allergy/AdvReac Type Severity Reaction Status Date / Time codeine Allergy Unknown Verified 09/27/24 12:11 adhesive AdvReac Itching, Verified 09/27/24 12:11 rash Review of Systems ROS Statement: Those systems with pertinent positive or pertinent negative responses have been documented in the HPI. ROS Other: All systems not noted in ROS Statement are negative. Past Medical History Past Medical History: Neurologic Disorder Additional Past Medical History / Comment(s): Abd pain. Sinus problems. Multiple Sclerosis.Occasional left leg edema. Hiatal hernia History of Any Multi-Drug Resistant Organisms: None Reported Past Surgical History: Bladder Surgery, Breast Surgery, Hysterectomy, Orthopedic Surgery Additional Past Surgical History / Comment(s): Bladder susp, D & C; Left knee scope; left breast biopsy; Past Anesthesia/Blood Transfusion Reactions: Previous Problems w/ Anesthesia, Motion Sickness, Postoperative Nausea & Vomiting (PONV) Additional Past Anesthesia/Blood Transfusion Reaction / Comment(s): 1 episode of diff waking up post op. Past Psychological History: No Psychological Hx Reported Smoking Status: Never smoker Past Alcohol Use History: None Reported Past Drug Use History: None Reported - Past Family History Brother(s) Family Medical History: Cancer Additional Family Medical History / Comment(s): Prostate CA. Sister(s) Family Medical History: Cancer General Exam Limitations: no limitations General appearance: alert, in no apparent distress Head exam: Present: atraumatic, normocephalic, normal inspection Eye exam: Present: normal appearance, PERRL, EOMI. Absent: scleral icterus, conjunctival injection, periorbital swelling ENT exam: Present: normal exam, mucous membranes moist Neck exam: Present: normal inspection. Absent: tenderness, meningismus, lymphadenopathy Respiratory exam: Present: normal lung sounds bilaterally. Absent: respiratory distress, wheezes, rales, rhonchi, stridor Cardiovascular Exam: Present: regular rate, normal rhythm, normal heart sounds. Absent: systolic murmur, diastolic murmur, rubs, gallop, clicks GI/Abdominal exam: Present: soft, normal bowel sounds. Absent: distended, tenderness, guarding, rebound, rigid Extremities exam: Present: full ROM, normal capillary refill, other (Complete avulsion of tip/pad of right distal thumb without damage to nail and without exposure of bone. No obvious foreign body, active bleeding). Absent: tenderness, pedal edema, joint swelling, calf tenderness Back exam: Present: normal inspection Neurological exam: Present: alert, oriented X3, CN II-XII intact Psychiatric exam: Present: normal affect, normal mood Skin exam: Present: warm, dry, intact, normal color. Absent: rash Course Vital Signs 09/27/24 09/27/24 12:12 13:04 Temperature 97.5 F L 98.0 F Pulse Rate 86 82 Respiratory 20 20 Rate Blood Pressure 167/81 146/78 O2 Sat by Pulse 99 99 Oximetry Medical Decision Making - Medical Decision Making Was pt. sent in by a medical professional or institution (, PA, TAILERCPA, urgent care, hospital, or custodial...) When possible be specific @ -No Did you speak to anyone other than the patient for history (EMS, parent, family, police, friend...)? What history was obtained from this source @ -No Did you review nursing and triage notes (agree or disagree)? Why? @ -I reviewed and agree with nursing and triage notes Were old charts reviewed (outside hosp., previous admission, EMS record, old EKG, old radiological studies, urgent care reports/EKG's, custodial records)? Report findings @ -No old charts were reviewed Differential Diagnosis (chest pain, altered mental status, abdominal pain women, abdominal pain men, vaginal bleeding, weakness, fever, dyspnea, syncope, headache, dizziness, GI bleed, back pain, seizure, CVA, palpatations, mental health, musculoskeletal)? @ -Laceration, avulsion, cellulitis EKG interpreted by me (3pts min.). @ -Not done X-rays interpreted by me (1pt min.). @ -None done CT interpreted by me (1pt min.). @ -None done U/S interpreted by me (1pt. min.). @ -None done What testing was considered but not performed or refused? (CT, X-rays, U/S, labs)? Why? @ -None What meds were considered but not given or refused? Why? @ -None Did you discuss the management of the patient with other professionals (professionals i.e. , PA, TAILERCPA, lab, RT, psych nurse, medical social consultant, used car renovator, teacher, intelligence officer basic, director of casework)? Give summary @ -No Was smoking cessation discussed for >3mins.? @ -No Was critical care preformed (if so, how long)? @ -No Were there social determinants of health that impacted care today? How? (Homelessness, low income, unemployed, alcoholism, drug addiction, transportation, low edu. Level, literacy, decrease access to med. care, fpc, rehab)? @ -No Was there de-escalation of care discussed even if they declined (Discuss DNR or withdrawal of care, Hospice)? DNR status @ -No What co-morbidities impacted this encounter? (DM, HTN, Smoking, COPD, CAD, Cancer, CVA, ARF, Chemo, Hep., AIDS, mental health diagnosis, sleep apnea, morbid obesity)? @ -None Was patient admitted / discharged? Hospital course, mention meds given and route, prescriptions, significant lab abnormalities, going to OR and other pertinent info. @ -Remainder of avulsed skin hanging by a small amount of tissue, removed easily without incident or pain. Patient's thumb soaked in Betadine bath. Wrapped with 4 x 4 gauze and tape. Tdap administered. Wound care instructions provided. Undiagnosed new problem with uncertain prognosis? @ -No Drug Therapy requiring intensive monitoring for toxicity (Heparin, Nitro, Insulin, Cardizem)? @ -No Were any procedures done? @ -No Diagnosis/symptom? @ -Complete avulsion laceration of right thumb Acute, or Chronic, or Acute on Chronic? @ -Acute Uncomplicated (without systemic symptoms) or Complicated (systemic symptoms)? @ -Uncomplicated Side effects of treatment? @ -No Exacerbation, Progression, or Severe Exacerbation? @ -No Poses a threat to life or bodily function? How? (Chest pain, [place], [place], pneumonia, PE, COPD, DKA, ARF, appy, cholecystitis, CVA, Diverticulitis, Homicidal, Suicidal, threat to staff... and all critical care pts) @ -No Disposition Clinical Impression: Laceration Disposition: HOME SELF-CARE Condition: Good Instructions (If sedation given, give patient instructions): Acute Wound Care (ED) Is patient prescribed a controlled substance at d/c from ED?: No Referrals: Tobi Leon DO [Primary Care Provider] - 1-2 days Time of Disposition: 12:52
[2024-09-27 13:05] VITALS: BP 146/78; PULSE 82; TEMP 98
== END 2024-09-27 13:06 | disposition home or self-care (01) ==
LOC: EC 12:09
DX: S61.011A Laceration without foreign body of right thumb without damage to nail, initial encounter (principal); Z88.5 Allergy status to narcotic agent; Z91.09 Other allergy status, other than to drugs and biological substances; Z23 Encounter for immunization; W27.4XXA Contact with kitchen utensil, initial encounter
CPT/HCPCS: 90471; 90715; 99282

== ENCOUNTER 2024-10-28 14:15 | Emergency (ER) | payer MEDICARE, BC ==
[2024-10-28 14:26] VITALS: RESP 20; TEMP 98
--- NOTE | 2024-10-28 15:43 | ED ---
Fall HPI - General Chief Complaint: Fall Stated Complaint: fall Time Seen by Provider: 10/28/24 15:19 Source: patient, EMS, RN notes reviewed, old records reviewed Mode of arrival: EMS Limitations: no limitations - History of Present Illness Initial Comments: This is a 73-year-old female with a fall. Patient had fall sustained at a grocery store. Trip and fall over a box landing onto her right arm. Patient is complaining of severe right arm pain from swelling and tenderness. Some decreased range of movement difficulty getting off the ground was unable to get off the ground and presented by EMS. 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: yes, by bystander Place Fall Occurred: street Loss of Consciousness: none Prolonged Down Time?: no Symptoms Prior to Fall: none Location - Extremities: Right: Shoulder, Arm, Elbow Severity: moderate Severity scale (1-10): 7 Quality: stabbing, aching Context: tripped/slipped Associated Symptoms: denies - Related Data Home Medications Medication Instructions Recorded Confirmed Fluticasone Propionate 2 spray EA NOSTRIL DAILY PRN 09/11/16 08/05/22 Furosemide [Lasix] 20 mg PO BID 09/11/16 08/05/22 Potassium Chloride [Klor-Con 10] 10 meq PO BID 09/11/16 08/05/22 Omeprazole [PriLOSEC] 40 mg PO QAM PRN 06/22/19 08/05/22 Multivitamins, Thera [Multivitamin 1 tab PO DAILY 08/03/22 08/03/22 (formulary)] Allergies Allergy/AdvReac Type Severity Reaction Status Date / Time codeine Allergy Unknown Verified 10/28/24 14:25 adhesive AdvReac Itching, Verified 10/28/24 14:25 rash Review of Systems ROS Statement: Those systems with pertinent positive or pertinent negative responses have been documented in the HPI. ROS Other: All systems not noted in ROS Statement are negative. Past Medical History Past Medical History: Neurologic Disorder Additional Past Medical History / Comment(s): Abd pain. Sinus problems. Multiple Sclerosis.Occasional left leg edema. Hiatal hernia History of Any Multi-Drug Resistant Organisms: None Reported Past Surgical History: Bladder Surgery, Breast Surgery, Hysterectomy, Orthopedic Surgery Additional Past Surgical History / Comment(s): Bladder susp, D & C; Left knee scope; left breast biopsy; Past Anesthesia/Blood Transfusion Reactions: Previous Problems w/ Anesthesia, Motion Sickness, Postoperative Nausea & Vomiting (PONV) Additional Past Anesthesia/Blood Transfusion Reaction / Comment(s): 1 episode of diff waking up post op. Past Psychological History: No Psychological Hx Reported Smoking Status: Never smoker Past Alcohol Use History: None Reported Past Drug Use History: None Reported - Past Family History Brother(s) Family Medical History: Cancer Additional Family Medical History / Comment(s): Prostate CA. Sister(s) Family Medical History: Cancer General Exam General appearance: alert, in no apparent distress Head exam: Present: atraumatic, normocephalic, normal inspection Eye exam: Present: normal appearance, PERRL, EOMI. Absent: scleral icterus, conjunctival injection, periorbital swelling ENT exam: Present: normal exam, mucous membranes moist Neck exam: Present: normal inspection. Absent: tenderness, meningismus, lymphadenopathy Respiratory exam: Present: normal lung sounds bilaterally. Absent: respiratory distress, wheezes, rales, rhonchi, stridor Cardiovascular Exam: Present: regular rate, normal rhythm, normal heart sounds. Absent: systolic murmur, diastolic murmur, rubs, gallop, clicks GI/Abdominal exam: Present: soft, normal bowel sounds. Absent: distended, tenderness, guarding, rebound, rigid Extremities exam: Present: normal inspection, full ROM, normal capillary refill. Absent: tenderness, pedal edema, joint swelling, calf tenderness Back exam: Present: normal inspection Neurological exam: Present: alert, oriented X3, CN II-XII intact Psychiatric exam: Present: normal affect, normal mood Skin exam: Present: warm, dry, intact, normal color. Absent: rash Course Vital Signs 10/28/24 14:18 Temperature 98.0 F Pulse Rate 68 Respiratory 20 Rate Blood Pressure 140/85 O2 Sat by Pulse 97 Oximetry - Reevaluation(s) Reevaluation #1: 10/28/24 15:51 Medical records reviewed Reevaluation #2: 10/28/24 16:43 Patient has improved pain control here in the ER Reevaluation #3: 10/28/24 16:43 Patient informed of results and questions answered Reevaluation #4: Was pt. sent in by a medical professional or institution (, PA, MECHANICAL EQUIPMENT TEST ENGINEER, urgent care, hospital, or retirement...) When possible be specific @ -no Did you speak to anyone other than the patient for history (EMS, parent, family, police, friend...)? What history was obtained from this source @ -no Did you review nursing and triage notes (agree or disagree)? Why? @ -agree Are old charts reviewed (outside hosp., previous admission, EMS record, old EKG, old radiological studies, urgent care reports/EKG's, retirement records)? Report findings @ -yes Differential Diagnosis (chest pain, altered mental status, abdominal pain women, abdominal pain men, vaginal bleeding, weakness, fever, dyspnea, syncope, headache, dizziness, GI bleed, back pain, seizure, CVA, palpatations, mental health, musculoskeletal)? @ -prior EKG interpreted by me (3pts min.). @ -yes X-rays interpreted by me (1pt min.). @ -yes negative for acute disease CT interpreted by me (1pt min.). @ -no U/S interpreted by me (1pt. min.). @ -no What testing was considered but not performed or refused? (CT, X-rays, U/S, labs)? Why? @ -none What meds were considered but not given or refused? Why? @ -none Did you discuss the management of the patient with other professionals (professionals i.e. , JULIANO, MECHANICAL EQUIPMENT TEST ENGINEER, lab, RT, psych nurse, social media director, strip presser, teacher, promotion officer, wrapper caser)? Give summary @ -no Was smoking cessation discussed for >3mins.? @ -no Was critical care preformed (if so, how long)? @ -no Were there social determinants of health that impacted care today? How? (Homelessness, low income, unemployed, alcoholism, drug addiction, transportation, low edu. Level, literacy, decrease access to med. care, shelter, rehab)? @ -none Was there de-escalation of care discussed even if they declined (Discuss DNR or withdrawal of care, Hospice)? DNR status @ -no What co-morbidities impacted this encounter? (DM, HTN, Smoking, COPD, CAD, Cancer, CVA, ARF, Chemo, Hep., AIDS, mental health diagnosis, sleep apnea, morbid obesity)? @ -none Was patient admitted / discharged? Hospital course, mention meds given and route, prescriptions, significant lab abnormalities, going to OR and other pertinent info. @ - Undiagnosed new problem with uncertain prognosis? @ -no Drug Therapy requiring intensive monitoring for toxicity (Heparin, Nitro, Insulin, Cardizem)? @ -no Were any procedures done? @ -no Diagnosis/symptom? @ - Acute, or Chronic, or Acute on Chronic? @ -Acute Uncomplicated (without systemic symptoms) or Complicated (systemic symptoms)? @ -Complicated Side effects of treatment? @ -no Exacerbation, Progression, or Severe Exacerbation? @ -exacerbation Poses a threat to life or bodily function? How? (Chest pain, USA, MA, pneumonia, PE, COPD, DKA, ARF, appy, cholecystitis, CVA, Diverticulitis, Homicidal, Lee icidal, threat to staff... and all critical care pts) @ -yes Medical Decision Making - Medical Decision Making 73 female right shoulder pain after fall. No acute traumatic injury noted on imaging patient can be discharged home - Radiology Data Radiology results: report reviewed (X-ray right shoulder elbow as well as chest x-ray is negative for acute disease), image reviewed Disposition Clinical Impression: Fall, Contusion of right shoulder Disposition: HOME SELF-CARE Condition: Good Instructions (If sedation given, give patient instructions): Fall Prevention for Older Adults (ED), Shoulder Pain (ED) Is patient prescribed a controlled substance at d/c from ED?: No Referrals: Tobi Leon DO [Primary Care Provider] - 1-2 days Time of Disposition: 16:35
--- NOTE | 2024-10-28 16:14 | XR ---
EXAMINATION TYPE: XR chest 1V DATE OF EXAM: 10/28/2024 3:59 PM COMPARISON: None. CLINICAL INDICATION: Female, 73 years old with history of fall; [facility] TECHNIQUE: XR chest 1V Frontal view of the chest. FINDINGS: Lungs/Pleura: There is no evidence of pleural effusion, focal consolidation, or pneumothorax. Minima l mid left lung linear scarring/atelectasis. Pulmonary vascularity: Unremarkable. Heart/mediastinum: Cardiomediastinal silhouette is unremarkable. Possible hiatal hernia and tortuosi ty of the thoracic aorta. Musculoskeletal: No definite acute displaced rib fracture. Other findings: None IMPRESSION: No acute cardiopulmonary disease/process. [facility], , 10/28/2024 4:12 PM
--- NOTE | 2024-10-28 16:16 | XR ---
EXAMINATION TYPE: XR shoulder complete RT DATE OF EXAM: 10/28/2024 3:59 PM COMPARISON: None. CLINICAL INDICATION: Female, 73 years old with history of fall; [facility] TECHNIQUE: XR shoulder complete RT; examined in AP, internally rotated and scapular Y projections. FINDINGS: No acute fracture or dislocation. Sclerotic changes in the right humeral head which could reflect und erlying enchondroma. No unexpected radiopaque foreign body. No obvious displaced rib fracture. 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 IMPRESSION: No acute osseous pathology. [facility], , 10/28/2024 4:14 PM
--- NOTE | 2024-10-28 16:24 | XR ---
EXAMINATION TYPE: XR elbow complete RT DATE OF EXAM: 10/28/2024 3:59 PM COMPARISON: CLINICAL INDICATION: Female, 73 years old with history of fall; [facility] TECHNIQUE: XR elbow complete RT; elbow was examined in AP, lateral, and oblique projections. FINDINGS: No evidence of any acute osseous pathology, joint dislocation, or soft tissue swelling is n oted. No evidence of joint effusion is present. IMPRESSION: No evidence of acute fracture. [facility], , 10/28/2024 4:21 PM
[2024-10-28] MEDS: MORPHINE SULFATE 4 MG/ML SYRINGE IVP STA (16:46)
[2024-10-28] MEDS: KETOROLAC 15 MG/ML 1 ML VIAL IVP STA (16:47)
[2024-10-28] MEDS: ONDANSETRON 4 MG ODT STARTER PACK 2 TAB BTL PO STA (16:49)
[2024-10-28] MEDS: IBUPROFEN 600 MG STARTER PACK 4 TAB BTL PO STA (16:49)
[2024-10-28] MEDS: traMADol 50 MG STARTER PACK 3 TAB BTL PO STA (16:49)
[2024-10-28 17:03] VITALS: BP 136/66; PULSE 69
== END 2024-10-28 17:03 | disposition home or self-care (01) ==
LOC: EC 14:15
DX: S40.011A Contusion of right shoulder, initial encounter (principal); W01.0XXA Fall on same level from slipping, tripping and stumbling without subsequent striking against object, initial encounter
CPT/HCPCS: 73030; 73080; 71045; 99284; 96374; 96375; J2270; J1885; S0119